=== PATIENT | male | born 1980 | race Caucasian/White ===

== ENCOUNTER 2020-10-01 15:54 | Inpatient (IN) | payer OTHER, SELFPAY ==
[2020-10-01] VITALS (7 sets, daily range): BP systolic 146–171; BP diastolic 95–100; PULSE 94–100; RESP 14–20; TEMP 36.6–37.4; O2SAT 96–99; BMI 23.5
--- NOTE | ~2020-10-01 | CT_ITS ---
EXAMINATION: CT abdomen pelvis w con DATE: 10/01/2020 18:51 INDICATION: Lower abdominal pain. TECHNIQUE: Computed tomography (CT) of the abdomen and pelvis was performed with 100 mL Omnipaque-350 intravenous contrast. Automated exposure control and iterative reconstruction technique were employe d. The dose-length product was 329.23 mGy-cm. COMPARISON: None FINDINGS: Lung bases are clear. Heart size is normal. No pericardial or pleural effusion. Minimal bilateral drum builder ecomastia. Liver, gallbladder, pancreas and bilateral adrenal glands are normal. Mild splenomegaly me asuring 14.1 cm maximal length which may be related to body habitus. Multiple bilateral renal cysts t he largest on the right measuring 11 mm. Normal appendix. Mild scattered colonic diverticulosis along the descending and sigmoid colon. There is marked wall thickening and surrounding inflammatory stran ding at the sigmoid colon consistent with diverticulitis. Trace amount of free intraperineal fluid in the deep pelvis. Small rim-enhancing bilobed fluid collection measuring 3.0 x 1.6 x 1.5 cm along the left side of the wall of the sigmoid colon. This appears to project to greater degree towards the trina loco side than the peripheral side of the wall and could represent either a dilated fluid-filled div erticulum or possibly an intramural or subserosal abscess. No free intraperitoneal gas or other drain able abscess identified. Tiny fat-containing umbilical hernia. Mild likely reactive mesenteric and in ferior mesenteric chain lymphadenopathy. Diffuse wall thickening of the partially decompressed bladde r which could be due to incomplete distention of an/or reactive edema related to the adjacent diverti culitis. Mild degenerative skeletal changes at the bilateral hips and sacroiliac joints and minimal i n the lumbar and lower thoracic spine. IMPRESSION: 1. Sigmoid diverticulitis with prominent inflammatory change and possible small subserosal abscess. Reviewed, dictated and finalized at location A. NESS MACHINE OPERATOR
[2020-10-01 16:59] LABS: Basophils Percent Auto 0.2 % (0.2-1.2); Eosinophils Absolute Auto 0.1 K/mm3 (0-0.3); Eosinophils Percent Auto 0.7 % (0-4.4); Hematocrit 40.7 % (42.0-52.0); Hemoglobin 13.8 g/dL (14.0-18.0); Immature Granulocyte Absolute 0.03 K/mm3 (0.00-0.031); Immature Granulocyte Percent A 0.3 % (0-0.5); Lymphocytes Absolute Auto 1.42 K/mm3 (0.9-3.2); Lymphocytes Percent Auto 12.6 % (18.3-44.2); Mean Corpuscular HGB Conc 33.9 g/dl (32-36); Mean Corpuscular Hemoglobin 29.3 pg (26-34); Mean Corpuscular Volume 86.4 fl (80-100); Mean Platelet Volume 10.7 fl (7.4-10.4); Monocytes Absolute Auto 1.1 K/mm3 (0.1-0.6); Monocytes Percent Auto 9.7 % (2.6-8.5); Neutrophils Absolute Auto 8.7 K/mm3 (1.3-6.7); Neutrophils Percent Auto 76.5 % (45.5-73.1); Platelet Count Result 208 k/mm3 (150-375); Red Blood Count 4.71 M/mm3 (4.6-6.20); Red Cell Distribution Width 12.6 % (11.5-14.5); White Blood Count 11.3 K/mm3 (4.5-10.0)
[2020-10-01 17:09] LABS: Add Urine Microscopic? NO; Appearance Urine Clear (Clear); Bilirubin Urine Negative (Negative); Blood Urine Negative (Negative); Color Urine Yellow (Yellow); Glucose Urine UA Negative (Negative); Ketones Urine Negative (Negative); Leukocyte Esterase Ur Negative LEU/UL (Negative); Nitrate Urine Negative (Negative); Protein Urine Negative (Negative); Specific Grav Ur 1.011 (1.001-1.035); Urobilinogen Urine Negative mg/dL (<2.0)
[2020-10-01 17:20] LABS: Alanine Aminotransferase 121 U/L (4-50); Albumin Level 4.5 g/dL (3.5-5.1); Alkaline Phosphatase 96 U/L (38-126); Anion Gap 9 mmol/L (8-16); Aspartate Amino Transferase 54 U/L (17-59); Bilirubin,Total 0.9 mg/dL (0.2-1.3); Blood Urea Nitrogen 11 mg/dL (9-20); Calcium 9.3 mg/dL (8.4-10.2); Carbon Dioxide 29 mmol/L (22-30); Chloride 101 mmol/L (98-107); Estimated CRCL calculation 117 ml/min; Estimated Glomerular Filt Rate > 60; Glucose 111 mg/dL (75-110); Lipase 59 U/L (23-300); Potassium 3.9 mmol/L (3.4-5.0); Sodium 139 mmol/L (137-145)
--- NOTE | 2020-10-01 18:28 | ED.ABDPAIN ---
HPI - Abdominal Pain General Chief Complaint: Abdominal Pain Stated Complaint: abd pain Time Seen by Provider: 10/01/20 17:30 Source: patient Mode of arrival: ambulatory Limitations: no limitations History of Present Illness HPI narrative: This patient is a 40 year old male who presents for evaluation of lower abdominal pain. He started having pain to his lower abdomen on Thursday. He describes his pain as intermittent sharp pain. His pain is nonradiating. He denies associated nausea, vomiting, fever, urinary symptoms or diarrhea. He denies having any pain now MD elicited complaint: abdominal pain Onset (ago): day(s) (4) Pain Consistency: intermittent Quality: stabbing Related Data Home Medications Medication Instructions Recorded Confirmed No Home Medications 10/01/20 10/01/20 Allergies Allergy/AdvReac Type Severity Reaction Status Date / Time Sulfa (Sulfonamide Allergy Unknown UNKNOWN Verified 10/01/20 17:20 Antibiotics) WAS CHILD Review of Systems Review of Systems: All systems reviewed & are unremarkable except as noted in HPI and below Constitutional: Constitutional: Denies chills and Denies fever(s) Cardiovascular: Cardiovascular: Denies chest pain Gastrointestinal: Gastrointestinal: Reports abdominal pain, Denies diarrhea, Denies nausea and Denies vomiting PMFSH Past Medical History Medical History (Updated 10/01/20 @ 19:41 by Molly Lyman MD) Patient denies medical problems Surgical History Surgical History (Updated 10/01/20 @ 18:29 by Molly Lyman MD) H/O carpal tunnel repair Social History Social History (Updated 10/01/20 @ 18:29 by Molly Lyman MD) Smoking status: Never smoker Exam Const: General: no acute distress and alert Orientation/consciousness: patient oriented x3 Eyes: EOM: EOMs intact bilaterally Resp: Effort & Inspection: normal respiratory effort and no retractions Auscultation: clear to auscultation bilaterally Cardio: Rate: regular rate Rhythm: regular rhythm Heart sounds: no murmurs GI: GI Palp: Yes Soft to palpation, Yes Tenderness to palpation present (GI) (LLQ) and No Guarding due to palpation present (GI) Auscultation: normal bowel sounds Neuro: General: patient oriented x3 and moves all extremities Psych: Mental Status: mental status grossly normal Affect: normal affect Course Consultations Consultation #1: I Discussed CT with Dr. Rajan. HE states he will consult on patient. Treatment is medical management with IV antibiotics , no surgical intervention Date: 10/01/20 Time: 19:39 Consultation #2: I discussed case with Bonita lyudmila. She accepts patient to hospitalist service. Date: 10/01/20 Time: 19:40 Vital Signs Vital signs: Vital Signs Temperature 99 F 10/01/20 16:31 Pulse Rate 99 10/01/20 16:31 Respiratory Rate 16 10/01/20 16:31 Blood Pressure 171/97 H 10/01/20 16:31 Pulse Oximetry 99 10/01/20 16:31 Temperature 99.3 F 10/01/20 20:33 Pulse Rate 96 10/01/20 20:33 Respiratory Rate 16 10/01/20 20:33 Blood Pressure 162/100 H 10/01/20 20:33 Pulse Oximetry 96 10/01/20 20:33 MDM - Abdominal Pain Lab Data Attestation: I reviewed the patient's lab results. Result diagrams: 10/01/20 16:37 10/01/20 16:37 Labs: Lab Results 10/01/20 10/01/20 10/01/20 Range/Units 16:37 16:37 16:54 WBC 11.3 H (4.5-10.0) K/mm3 RBC 4.71 (4.6-6.20) M/mm3 Hgb 13.8 L (14.0-18.0) g/dL Hct 40.7 L (42.0-52.0) % MCV 86.4 (80-100) fl MCH 29.3 (26-34) pg MCHC 33.9 (32-36) g/dl RDW 12.6 (11.5-14.5) % Plt Count 208 (150-375) k/mm3 MPV 10.7 H (7.4-10.4) fl Immature Gran % (Auto) 0.3 (0-0.5) % Neut % (Auto) 76.5 H (45.5-73.1) % Lymph % (Auto) 12.6 L (18.3-44.2) % Sharkey % (Auto) 9.7 H (2.6-8.5) % Eos % (Auto) 0.7 (0-4.4) % Baso % (Auto) 0.2 (0.2-1.2) % Lymph # (Auto) 1.42 (0.9-3.2) K/mm3
[2020-10-01] MEDS: SODIUM CHLORIDE 0.9% IV 1,000 ML 125 ML IV CONT (21:08)
[2020-10-01] MEDS: MORPHINE SULFATE (*CRX) 4 MG/ML INJ IV PUSH (21:19)
--- NOTE | 2020-10-01 23:52 | PM.IMHP ---
H&P: HPI History of Present Illness Date/Time: 10/01/20 22:10 Chief Complaint: Abdominal pain Narrative: Steve Solano is a 40 year old male with a past medical history of hypertension who presented to the ER due to left lower abdominal pain. The patient reports 5 days left lower quadrant abdominal pain that is intermittent and sharp in nature. He reports that when the pain occurs it is so bad that it makes him double over. The pain is a 7/10 in intensity when it occurs. He reported that he ate a large meal on Thursday night and seemed to have worsening abdominal pain over the course of the evening. The pain was accompanied by small amounts of diarrheal stools with intermittent production of mucus. Mucus was sometimes blood tinged. He denied any fevers but did have some chills is started on Thursday. He has had decreased appetite but denies any nausea or vomiting. He has not had any recent ill contacts or travel. He denies any dysuria changes in urinary frequency or hematuria. He has had similar crampy type abdominal pain 1 other time in the past that resolved on its own. He also has a cyst on his right cheek. He reports that the cyst occasionally will drain some whitish material. He denies any pain associated with the cyst. It does at times get red but he thinks that this is due to him picking at the area. Review of Systems Review of Systems: Narrative: 12 systems were reviewed with pertinent positives and negatives per HPI. Except as documented in the HPI, all other systems were reviewed and are negative. [facility] Past Medical History Medical History (Updated 10/02/20 @ 00:24 by Joan Oliva DO) Essential hypertension Surgical History Surgical History (Updated 10/01/20 @ 23:56 by Joan Oliva DO) History of bilateral carpal tunnel release 2017 History of sinus surgery At age 16 Family History Family History Father Rheumatic heart disease Heart transplant complication as a result of complications of heart transplant at age 60. Mother Hypertension Sibling Hypertension Social History Social History (Updated 10/02/20 @ 00:01 by Joan Oliva DO) Social History: He lives in [place] with his of 15 years. They have a 13-year-old son and a 10-year-old daughter. He works in [employer]. He drinks about an 18 pack of beer a week. He denies ever having had any symptoms of alcohol withdrawal. He is a lifelong nonsmoker and does not use illicit substances. Primary care physician: None Code status: Full code (he does not have advanced directives in place) Surrogate decision maker: Lurdes () Smoking status: Never smoker Alcohol intake: current Drinks per week: 18 Substance use: never Gender identity (if verbalized by the patient): Male Spiritual care concerns: No Meds Home Medications and Allergies Home Medications Medication Instructions Recorded Confirmed Type aspirin [Adult Low Dose Aspirin] 81 mg PO DAILY 10/01/20 10/01/20 History Allergies Allergy/AdvReac Type Severity Reaction Status Date / Time Sulfa (Sulfonamide Allergy Unknown UNKNOWN Verified 10/01/20 17:20 Antibiotics) WAS CHILD Vital Signs Vital Signs - 24 hr 10/01/20 16:31 10/01/20 18:52 10/01/20 19:42 Temperature 99 F Pulse Rate 99 94 100 Respiratory Rate 16 20 14 Blood Pressure 171/97 H 158/97 H 156/95 H Pulse Oximetry 99 99 96 10/01/20 20:33 10/01/20 21:00 10/01/20 21:27 Temperature 99.3 F 98.8 F Pulse Rate 96 100 100 Respiratory Rate 16 16 16 Blood Pressure 162/100 H 168/95 H Pulse Oximetry 96 98 98 10/01/20 22:00 Temperature 97.9 F Pulse Rate 96 Respiratory Rate 18 Blood Pressure 146/98 H Pulse Oximetry 99 Exam Narrative: Exam Narrative: PHYSICAL EXAM: WEIGHT 70.1 kg BMI 23.5 General: Well-developed, well-nourished, no acute distress HEENT: Mucous membranes ar
[2020-10-02 04:20] VITALS: BP 150/99; PULSE 87; RESP 16; TEMP 36.5; O2SAT 99
--- NOTE | 2020-10-02 05:19 | PC.NURSE ---
Spoke with Dr. Oliva Pt had been on b/p meds and stopped taking them on his own, B/P is 160/96.
[2020-10-02 05:48] LABS: Basophils Percent Auto 0.2 % (0.2-1.2); Eosinophils Absolute Auto 0.1 K/mm3 (0-0.3); Hematocrit 40.2 % (42.0-52.0); Hemoglobin 13.5 g/dL (14.0-18.0); Immature Granulocyte Absolute 0.05 K/mm3 (0.00-0.031); Immature Granulocyte Percent A 0.5 % (0-0.5); Lymphocytes Absolute Auto 0.93 K/mm3 (0.9-3.2); Lymphocytes Percent Auto 9.2 % (18.3-44.2); Mean Corpuscular HGB Conc 33.6 g/dl (32-36); Mean Corpuscular Hemoglobin 29.5 pg (26-34); Mean Platelet Volume 10.5 fl (7.4-10.4); Monocytes Absolute Auto 1.1 K/mm3 (0.1-0.6); Monocytes Percent Auto 10.6 % (2.6-8.5); Neutrophils Absolute Auto 7.9 K/mm3 (1.3-6.7); Neutrophils Percent Auto 78.5 % (45.5-73.1); Platelet Count Result 169 k/mm3 (150-375); Red Blood Count 4.57 M/mm3 (4.6-6.20); Red Cell Distribution Width 12.9 % (11.5-14.5); White Blood Count 10.1 K/mm3 (4.5-10.0)
[2020-10-02] MEDS: SODIUM CHLORIDE 0.9% IV 1,000 ML 125 ML IV CONT ×3 (05:48→23:29)
[2020-10-02 05:59] LABS: Alanine Aminotransferase 94 U/L (4-50); Albumin Level 3.8 g/dL (3.5-5.1); Alkaline Phosphatase 88 U/L (38-126); Anion Gap 5 mmol/L (8-16); Aspartate Amino Transferase 42 U/L (17-59); Bilirubin,Total 1.2 mg/dL (0.2-1.3); Blood Urea Nitrogen 9 mg/dL (9-20); Calcium 8.3 mg/dL (8.4-10.2); Carbon Dioxide 30 mmol/L (22-30); Chloride 103 mmol/L (98-107); Estimated CRCL calculation 93 ml/min; Estimated Glomerular Filt Rate > 60; Glucose 103 mg/dL (75-110); Potassium 3.6 mmol/L (3.4-5.0); Sodium 138 mmol/L (137-145)
--- NOTE | 2020-10-02 08:45 | PM.CNGS ---
Assessment and Plan Assessment and plan (1) Abscess of sigmoid colon due to diverticulitis: Code(s): K57.20 - Diverticulitis of large intestine with perforation and abscess without bleeding Status: Acute Assessment and Plan: CT reviewed and discussed with the patient. He has evidence of acute sigmoid diverticulitis with a possible subserosal abscess. This is his first episode of diverticulitis. I discussed the pathophysiology of the disease process and treatment options. We would recommend continuing broad-spectrum IV antibiotics, IV fluids, and analgesics. His abdominal pain and tenderness has already improved. It seems appropriate to allow him to try a clear liquid diet and advance his diet as tolerated to a low fiber diet as he improves. I will ask the front sight attacher to come by and educate the patient on a low versus high fiber diet. I also discussed with the patient that he will need a colonoscopy as an outpatient once this acute episode has resolved, in about 6-8 weeks. Thank you for allowing us to see the patient in consultation and we will continue to follow along with you. (2) Essential hypertension: Code(s): I10 - Essential (primary) hypertension Status: Acute Assessment and Plan: Previously treated for hypertension but has not been on home medications for a few years. He also has not seen a PCP in a few years. Started on amlodipine this morning for elevated blood pressures. Management per Hospitalist. Additional Plan Discussed the patient's case and plan of care with Dr. Rajan. History of Present Illness Consult details Consult date: 10/02/20 Reason for consult: other (Acute sigmoid diverticulitis with possible abscess) Requesting physician: Molly Lyman MD Narrative: This is a 40-year-old male who our service was asked to see by the ER physician. He presented to the ED with complaints of lower abdominal pain starting 5 days ago. He reports the pain was crampy in nature and mild initially. The pain progressively worsened and became unbearable, therefore he presented to the ER for evaluation. He reports associated chills, but no known fever. CT scan of the abdomen and pelvis showed acute sigmoid diverticulitis with a fluid collection measuring 3 x 1.6 x 1.5 cm along the left side of the wall of the sigmoid colon. This fluid collection appears to be either a filled diverticulum, intraluminal abscess, or subserosal abscess. Labs revealed a mildly elevated white blood cell count of 11,300. Vital signs were stable in the ER. He was admitted to the Hospitalist service and started on broad-spectrum IV antibiotics. He has since been started on a clear liquid diet and is having a clear liquid tray when I came to examine him this morning. He states his abdominal pain has improved significantly, and he does not have any pain at this time. He reports improvement in his tenderness as well. Denies any nausea, vomiting, bloating, or other complaints. He reports having a loose bowel movement this morning. He denies a history of having known diverticulitis in the past or previous colonoscopy. He does report an episode of this similar type of pain previously, but this resolved quickly without intervention. Review of Systems Constitutional: Constitutional: Reports as per HPI, Reports chills, Denies fatigue, Denies fever(s) and Denies headache(s) Eyes: Eyes: Reports no additional eye complaints, Denies change in vision, Denies diplopia and Denies loss of vision ENT: Reports Normal hearing present, Denies dizziness and Denies headache(s) Cardiovascular: Cardiovascular: Reports no additional cardiovascular complaints, Denies chest pain, Denies syncope, Denies leg edema, Denies lightheadedness, Denies radiating jaw, neck or arm pain and Denies dyspnea Respiratory: Respiratory: Reports no additional respiratory complaints, Denies cough, Denies dyspnea and Denies wheezing Gastrointestinal: Gastrointestinal: Reports as per HPI, Re
[2020-10-02] MEDS: amLODIPine BESYLATE 5 MG TABLET PO (09:10)
[2020-10-02] MEDS: ASPIRIN 81 MG CHEWABLE TABLET PO (09:10)
[2020-10-02] MEDS: ENOXAPARIN 40 MG/0.4 ML SYRINGE SUB-Q (09:10)
--- NOTE | 2020-10-02 09:48 | PM.IMPN ---
Progress Note: A&P Assessment and Plan (1) Diverticulitis large intestine: Qualifiers: Diverticulitis bleeding: without bleeding Diverticulitis complication: with abscess Qualified Code(s): K57.20 - Diverticulitis of large intestine with perforation and abscess without bleeding Code(s): K57.32 - Diverticulitis of large intestine without perforation or abscess without bleeding Status: Acute Assessment and Plan: He reported 5 days of intermittent LLQ abdominal pain and diarrhea since Thursday. CT abd/pelvis demonstrated mild scattered colonic diverticulosis along the descending and sigmoid colon with marked wall thickening and surrounding inflammatory stranding at the sigmoid colon consistent with diverticulitis with a small rim-enhancing bilobed fluid collection measuring 3.0 x 1.6 x 1.5 cm along the left side of the wall of the sigmoid colon which could represent a dilated fluid-filled diverticulum or possibly an intramural or subserosal abscess. General surgery was consulted given possible subserosal abscess. He is afebrile and WBC is improving. Continue empiric IV zosyn - initiated 10/02 Continue clear liquid diet and advance as tolerated to low fiber per general surgery recommendations Political Aide consulted to provide information on low fiber diet Continue analgesics as needed for pain Continue gentle IV fluids He will need outpatient colonoscopy in 6-8 weeks after resolution of this acute episode General surgery recommends conservative treatment for possible abscess at this time. Appreciate recommendations and will defer management to general surgery. Continue to monitor (2) Essential hypertension: Code(s): I10 - Essential (primary) hypertension Status: Acute Assessment and Plan: He was diagnosed with essential hypertension approximately 5 years ago and was previously on antihypertensives until 3 years ago when he stopped taking them on his own accord. He has not seen a PCP in several years. BP is elevated above target with SBP 150-170s and DBP 90s. Initiate amlodipine Continue to monitor trend He will need to establish care with a primary care provider at discharge Subjective Date/time seen: 10/02/20 09:48 Mr. Solano is a 40 y.o. male with PMH significant for hypertension and not on antihypertensives prior to admission who is seen in follow-up for diverticulitis with possible subserosal abscess. He is doing better today. He is tolerating clear liquids well and pain has improved. He did have a bit of lower abdominal pain earlier this AM but notes that he had a bowel movement and urinated which seemed to help. He notes 1 soft, brown bowel movement 1 hour prior to my visit. He reports that he did not look closely at the bowel movement but notes no gross blood present. He reports no dysuria, urgency, or frequency. He reports no subjective fevers or chills. He denies chest pain, cough, dyspnea, and palpitations. He denies calf pain and leg swelling. Review of Systems Review of Systems: All systems reviewed & are unremarkable except as noted in HPI and below Exam Narrative: Exam Narrative: General: Very pleasant, well-developed, and well-nourished 40 y.o. male lying semi-recumbent in bed in no acute distress watching TV. HEENMT: Normocephalic and atraumatic. Sclera anicteric. EOMI. Oral mucosa moist. Neck: Supple. Cardiac: Regular rate and rhythm. S1 and S2 normal. No murmur appreciated. No JVD. Lungs: Lungs are clear to auscultation bilaterally without wheezes, rhonchi, or rales. Abdomen: Bowel sounds are normoactive. Abdomen is soft, mildly distended, and tender in the lower mid abdomen/LLQ with mild guarding to palpation. No rebound tenderness. Extremities: No lower extremity edema or calf tenderness. Dorsalis pedis and posterior tibialis pulses 2+ bilaterally. Neurological: Alert. No focal neurological deficits noted to casual conversation. Speech is clear. Skin:
[2020-10-02 10:37] VITALS: BP 140/84; PULSE 99; RESP 16; TEMP 36.6; O2SAT 98
--- NOTE | 2020-10-02 12:30 | PCNSR ---
On 10/02/20, the student,Lorin Carrion, provided care and completed [facility] documentation on this patient. I have reviewed the student's documentation and agree with the findings.
[2020-10-02 14:05] VITALS: BP 155/81; PULSE 102; RESP 16; TEMP 37.1; O2SAT 100
--- NOTE | 2020-10-02 14:43 | PC.NURSE ---
On 10/02/20, the student, [MARYELLEN LAURENT], provided care and completed [facility] documentation on this patient. I have reviewed the student's documentation and agree with the findings.
[2020-10-02] MEDS: ACETAMINOPHEN 325 MG TABLET 650 MG PO (15:42)
[2020-10-02 20:00] VITALS: PULSE 102; RESP 16; O2SAT 100
[2020-10-02 22:00] VITALS: BP 127/83; PULSE 90; RESP 20; TEMP 36.4; O2SAT 99
[2020-10-03 05:05] VITALS: BP 126/84; PULSE 66; RESP 18; TEMP 36.6; O2SAT 98
--- NOTE | 2020-10-03 05:25 | PC.NURSE ---
IV dc'ed leaking pt states he is going home today and does not want IV restarted.
[2020-10-03 05:56] LABS: Alanine Aminotransferase 95 U/L (4-50); Albumin Level 3.6 g/dL (3.5-5.1); Alkaline Phosphatase 98 U/L (38-126); Anion Gap 5 mmol/L (8-16); Aspartate Amino Transferase 51 U/L (17-59); Bilirubin,Total 0.8 mg/dL (0.2-1.3); Blood Urea Nitrogen 5 mg/dL (9-20); Calcium 8.2 mg/dL (8.4-10.2); Carbon Dioxide 29 mmol/L (22-30); Chloride 106 mmol/L (98-107); Estimated CRCL calculation 117 ml/min; Estimated Glomerular Filt Rate > 60; Glucose 88 mg/dL (75-110); Magnesium 2.1 mg/dL (1.6-2.3); Potassium 3.8 mmol/L (3.4-5.0); Sodium 140 mmol/L (137-145)
[2020-10-03 06:14] LABS: Basophils Percent Auto 0.2 % (0.2-1.2); Eosinophils Absolute Auto 0.1 K/mm3 (0-0.3); Eosinophils Percent Auto 1.5 % (0-4.4); Hematocrit 36.7 % (42.0-52.0); Hemoglobin 12.3 g/dL (14.0-18.0); Immature Granulocyte Absolute 0.02 K/mm3 (0.00-0.031); Immature Granulocyte Percent A 0.4 % (0-0.5); Lymphocytes Absolute Auto 0.85 K/mm3 (0.9-3.2); Lymphocytes Percent Auto 15.9 % (18.3-44.2); Mean Corpuscular HGB Conc 33.5 g/dl (32-36); Mean Corpuscular Hemoglobin 29.1 pg (26-34); Mean Platelet Volume 10.4 fl (7.4-10.4); Monocytes Absolute Auto 0.9 K/mm3 (0.1-0.6); Monocytes Percent Auto 16.1 % (2.6-8.5); Neutrophils Absolute Auto 3.5 K/mm3 (1.3-6.7); Neutrophils Percent Auto 65.9 % (45.5-73.1); Platelet Count Result 160 k/mm3 (150-375); Red Blood Count 4.22 M/mm3 (4.6-6.20); Red Cell Distribution Width 12.7 % (11.5-14.5); White Blood Count 5.3 K/mm3 (4.5-10.0)
[2020-10-03] MEDS: ASPIRIN 81 MG CHEWABLE TABLET PO (08:33)
[2020-10-03] MEDS: amLODIPine BESYLATE 5 MG TABLET PO (08:33)
[2020-10-03] MEDS: ENOXAPARIN 40 MG/0.4 ML SYRINGE SUB-Q (08:33)
--- NOTE | 2020-10-03 09:25 | PM.PNGS ---
Progress Note: A&P Assessment and Plan (1) Abscess of sigmoid colon due to diverticulitis: Code(s): K57.20 - Diverticulitis of large intestine with perforation and abscess without bleeding Status: Acute Assessment and Plan: Patient is clinically improving. No abdominal pain or tenderness this morning. WBC normal, afebrile. Will advance to low fiber diet. Okay from a surgical standpoint to transition the patient to oral antibiotics and discharge today. Will need an outpatient colonoscopy in 6-8 weeks. Additional Plan Discussed plan of care with Dr. Rajan. Subjective Subjective Date/Time Seen: 10/03/20 09:25 Patient reports: no new complaints, feels better, pain is less, tolerating liquids well, flatus and bowel movement Interval history: Patient tolerating full liquids this morning. Denies any abdominal pain, nausea, or vomiting. Reports having a BM this morning. No other complaints. Review of Systems Review of Systems: All systems reviewed & are unremarkable except as noted in HPI and below Constitutional: Constitutional: Denies fever(s) Exam Const: General: no acute distress, alert and awake GI: Inspection: normal to inspection and non-distended GI Palp: Yes Soft to palpation, No Tenderness to palpation present (GI), No Guarding due to palpation present (GI) and No Rebound tenderness present Auscultation: normal bowel sounds Neuro: General: moves all extremities and no focal motor deficits Extrem: General: no clubbing, cyanosis or edema Psych: Mental Status: mental status grossly normal Insight: Good insight present (Psych) Judgement: Good judgement present (Psych) Objective Data Vital Signs Vital Signs: Vital Signs - 24 hr 10/02/20 10:37 10/02/20 14:05 10/02/20 20:00 Temperature 97.8 F 98.7 F Pulse Rate 99 102 H 102 H Respiratory Rate 16 16 16 Blood Pressure 140/84 155/81 H Pulse Oximetry 98 100 100 10/02/20 22:00 10/03/20 05:05 Temperature 97.5 F L 97.8 F Pulse Rate 90 66 Respiratory Rate 20 18 Blood Pressure 127/83 126/84 Pulse Oximetry 99 98 Intake/Output Intake/Output: Intake & Output 09/30/20 10/01/20 10/02/20 10/03/20 23:59 23:59 23:59 23:59 Intake Total 50 5970 480 Output Total 7640 316 Balance 50 4150 -120 Meds/Results Medications: Active Medications Generic Name Dose Route Start Last Admin Trade Name Freq PRN Reason Stop Dose Admin Acetaminophen 650 mg 10/02/20 10:07 10/02/20 15:42 Acetaminophen 325 Mg Tablet PO 650 mg Q4H PRN Administration Mild Pain (1-3) or Fever Hydrocodone Bitart/Acetaminophen 1 tab 10/02/20 10:07 Hydrocodone/Acetaminophen (*Crx) 5-325 Mg Tablet PO Q6H PRN Pain Rated 4-6 Amlodipine Besylate 5 mg 10/02/20 09:00 10/03/20 08:33 Amlodipine Besylate 5 Mg Tablet PO 5 mg QAM ANNETTE Administration Aspirin 81 mg 10/02/20 08:00 10/03/20 08:33 Aspirin 81 Mg Chewable Tablet PO 81 mg DAILY@0800 ANNETTE Administration Enoxaparin Sodium 40 mg 10/02/20 09:00 10/03/20 08:33 Enoxaparin 40 Mg/0.4 Ml Syringe SUB-Q 40 mg DAILY ANNETTE Administration Levofloxacin 750 mg 10/03/20 09:00 Levofloxacin Tab 750 Mg Tablet PO DAILY ANNETTE Metronidazole 500 mg 10/03/20 14:00 Metronidazole 250 Mg Tablet PO Q8HR [facility] Morphine Sulfate 2 mg 10/02/20 10:14 Morphine Sulfate (*Crx) 2 Mg/Ml Inj IV PUSH Q2H PRN Pain Rated 7-10 Radiology Results: ITS Impressions Abdomen/Pelvis CT 10/01/20 18:56 IMPRESSION: 1. Sigmoid diverticulitis with prominent inflammatory change and possible small subserosal abscess. Labs Labs: Laboratory Results - last 24 hr 10/03/20 10/03/20 05:31 05:31 WBC 5.3 RBC 4.22 L Hgb 12.3 L Hct 36.7 L MCV 87.0 MCH 29.1 MCHC 33.5 RDW 12.7 Plt Count 160 MPV 10.4 Immature Gran % (Auto) 0.4 Neut % (Auto) 65.9 Lymph % (Auto) 15.9 L Glenn % (Auto) 16.1 H Eos % (Auto) 1.5 Baso % (Auto
--- NOTE | 2020-10-03 10:00 | PM.DS ---
DS: Admitting Diagnosis Admitting Diagnosis Admitting Diagnosis: Diverticulitis DS: Discharge Diagnosis Discharge Diagnosis (1) Diverticulitis large intestine: Qualifiers: Diverticulitis bleeding: without bleeding Diverticulitis complication: with abscess Qualified Code(s): K57.20 - Diverticulitis of large intestine with perforation and abscess without bleeding Code(s): K57.32 - Diverticulitis of large intestine without perforation or abscess without bleeding Status: Acute Assessment and Plan: Discharge Summary (Date of service 10/03/20): Mr. Solano is a 40 y.o. male with PMH significant for hypertension and not on antihypertensives prior to admission who presented to the emergency department for the evaluation of abdominal pain. He reported 5 days of intermittent LLQ abdominal pain and diarrhea for [address] abd/pelvis performed in the emergency department demonstrated mild scattered colonic diverticulosis along the descending and sigmoid colon with marked wall thickening and surrounding inflammatory stranding at the sigmoid colon consistent with diverticulitis with a small rim-enhancing bilobed fluid collection measuring 3.0 x 1.6 x 1.5 cm along the left side of the wall of the sigmoid colon which could represent a dilated fluid-filled diverticulum or possibly an intramural or subserosal abscess. He was treated with IV zosyn. General surgery was consulted given possible subserosal abscess and recommended conservative care with IV antibiotics and outpatient follow-up with colonoscopy in 6-8 weeks after resolution of his acute episode. His diet was advanced slowly as tolerated and he tolerated this well. The machine operator farmworker was consulted to provide information for a low fiber diet. He improved significantly with nearly complete resolution of his pain and he was tolerating low fiber diet with soft bowel movements. He was afebrile and WBC normalized to 5,300. He was not established with a PCP at this time and he was provided with the contact information for Dr. Perez who was electrical electronics engineer when he came to the ER. He was given lab orders for repeat labs in 1 week. Amlodipine was initiated due to his hypertension and he was advised to keep a BP log and follow-up with his PCP outpatient. He was discharged in hemodynamically stable condition on the afternoon of 10/03/20. Worrisome signs and symptoms which would warrant return to the emergency department were discussed and he verbalized understanding. (2) Essential hypertension: Code(s): I10 - Essential (primary) hypertension Status: Acute Assessment and Plan: He was diagnosed with essential hypertension approximately 5 years ago and was previously on antihypertensives until 3 years ago when he stopped taking them on his own accord. He has not seen a PCP in several years. BP was elevated above target with SBP 150-170s and DBP 90s and amlodipine was initiated. He will need to establish care with a primary care provider at discharge and he was advised to keep a BP log. (3) Elevated ALT measurement: Code(s): R74.01 - Elevation of levels of liver transaminase levels Status: Acute Assessment and Plan: ALT mildly elevated at 95 the day of discharge. Hepatitis panel was negative and liver normal on CT. Plan for repeat CMP in 1 week and follow-up with PCP outpatient. (4) Anemia: Code(s): D64.9 - Anemia, unspecified Status: Acute Assessment and Plan: Hb was 13.8 on arrival. Plan for repeat CBC in 1 week and if he is anemic after resolution of acute illness, he will need further outpatient workup. DS: Summary Hospital Course Reason for hospitalization: Abdominal pain Hospital Course: As above. Status at Discharge Functional status at discharge: independent ambulation Overall status at discharge: patient is back to baseline Time Spent with Patient Time attestation: Total time spent providing and/or coordinating discharge se
[2020-10-03 10:24] LABS: Hepatitis B Surface Antigen Negative (Negative)
[2020-10-03 10:29] LABS: HAV RESULT Negative (Negative); Hepatitis B Core IgM Result Negative (Negative)
[2020-10-03 10:31] VITALS: RESP 18; O2SAT 98
[2020-10-03 10:41] LABS: Hepatitis C Virus Antibody Negative (Negative)
[2020-10-03] MEDS: metroNIDAZOLE 250 MG TABLET 500 MG PO (13:09)
== END 2020-10-03 13:55 | disposition home or self-care (01) | DRG 392 ==
LOC: ANHED 19:41 → ANH2MED 21:22
PROVIDERS: Emergency Medicine; Admitting Provider Internal Medicine; Emergency Provider General Practice; Visit Provider Physician Assistant
DX: K57.20 Diverticulitis of large intestine with perforation and abscess without bleeding (principal); D64.9 Anemia, unspecified; I10 Essential (primary) hypertension; R74.01 Elevation of levels of liver transaminase levels; L72.8 Other follicular cysts of the skin and subcutaneous tissue
CPT/HCPCS: 36415; 74177; 80053; 80074; 81003; 83690; 83735; 85025; 96374; 99285; A9270; J1650; J2270; J2543; J7030; Q9967

== ENCOUNTER → 2021-02-07 15:57 | Outpatient (CLI) | payer OTHER, SELFPAY ==
--- NOTE | ~2021-02-07 | US_ITS ---
EXAMINATION: US thyroid EXAM DATE: 02/07/2021 16:28 INDICATION: Elevated thyroid levels . TECHNIQUE: Multiple grayscale and Doppler images of the thyroid were obtained (by a technologist who performed the scan) and subsequently reviewed. Individual nodules and recommendations may be reporte d in accordance with TI-RADS system as designated by the 2017 ACR White Paper TI-RADS committee. The re is no prior study for comparison. FINDINGS: Right there are lobe measures 3.9 x 1.9 x 1.6 cm, left measuring 4.0 x 2.4 x 2.0 cm. There is diffuse ly heterogeneous thyroid echogenicity with expected amount of vascularity to thyroid parenchyma. Right thyroid lobe inferior pole nodule measuring 1.5 x 1.2 x 1.5 centimeters, solid (2 points), isoe choic (1 point), wider than tall, smooth well defined margin, without echogenic foci, category TR3 fo r this nodule. For this category, follow-up is recommended at 1.5 cm in biopsy if growth demonstrated on follow-up. IMPRESSION: Right thyroid lobe TR 3 nodule; recommend follow-up at 1, 3, 5 years assuming no growth t o indicate biopsy. Reviewed, dictated and finalized at location G. IMPRESSION: Right thyroid lobe TR 3 nodule; recommend follow-up at 1, 3, 5 year s assuming no growth to indicate biopsy.
== END ==
PROVIDERS: PCP Emergency Medicine; Visit Provider Emergency Medicine
DX: R94.6 Abnormal results of thyroid function studies (principal); E04.1 Nontoxic single thyroid nodule
CPT/HCPCS: 76536

== ENCOUNTER → 2021-07-17 02:07 | Outpatient (CLI) | payer BC, SELFPAY ==
[2021-07-17 18:14] LABS: SARS-CoV-2 RNA PCR Positive
== END ==
PROVIDERS: PCP Emergency Medicine; Visit Provider Emergency Medicine
DX: U07.1 COVID-19 (principal)
CPT/HCPCS: C9803; U0003; U0005